=== PATIENT | female | born 1940 | race Caucasian/White ===

== ENCOUNTER 2016-11-15 16:15 | Emergency (ER) | payer MEDICARE ==
[2016-11-15] MEDS ORDERED: OXYBUTYNIN CHLOR5 M2 PO (16:49)
[2016-11-15] MEDS ORDERED: SINGULAIR10 M1 PO (16:49)
[2016-11-15] MEDS ORDERED: HYDROCODON-ACE1 EA16 PO (16:49)
[2016-11-15] MEDS ORDERED: NORVASC5 M2 PO (16:50)
[2016-11-15] MEDS ORDERED: REMERON15 M1 PO (16:50)
[2016-11-15] MEDS ORDERED: SERTRALINE HCL50 M4 PO (16:50)
[2016-11-15] MEDS ORDERED: NAMENDA5 M1 PO (16:50)
[2016-11-15] MEDS ORDERED: PROPRANOLOL HCL40 M2 PO (16:51)
[2016-11-15] MEDS ORDERED: ARICEPT10 M2 PO (16:51)
[2016-11-15] MEDS ORDERED: DIOVAN160 M1 PO (16:51)
[2016-11-15] MEDS ORDERED: ZYRTEC10 M7 PO (16:52)
[2016-11-15] MEDS ORDERED: GLUCOPHAGE500 M3 PO (16:52)
[2016-11-15] MEDS ORDERED: VITAMIN B-121000 MC1 PO (16:52)
[2016-11-15 17:10] LABS: BASO % 1.2 % (0-2); BASO ABSOLUTE COUNT 0.1 tho/cmm (0.0-0.2); EOS % 6.7 % (0-7); EOSINOPHIL ABSOLUTE COUNT 0.3 tho/cmm (0.0-0.7); HCT-HEMATOCRIT 29.9 % (34.0-49.0); HGB-HEMOGLOBIN 9.3 gm/dl (12.0-15.5); IMMATURE GRANULOCYTES ABSOLUTE 0.02 tho/cmm (0-0.03); IMMATURE GRANULOCYTES PERCENT 0.4 % (0-0.3); LYMPH % 28.7 % (20-45); LYMPH ABSOLUTE COUNT 1.4 tho/cmm (0.8-4.5); MCH (MEAN CORPUSCULAR HGB) 23.6 pg (28.0-32.0); MCHC MEAN CORPUSCULAR HGB CONC 31.1 % (32.0-36.0); MCV (MEAN CELL VOLUME) 75.9 fl (82.0-96.0); MEAN PLATELET VOLUME 11.7 cmc (9.4-12.4); MONO % 7.3 % (0-12); MONOCYTE ABSOLUTE COUNT 0.4 tho/cmm (0.0-1.2); NEUTROPHIL ABSOLUTE COUNT 2.7 tho/cmm (1.6-8.0); NEUTROPHIL-AUTOMATED 2.7 tho/cmm (1.6-8.0); NEUTROPHILS % 55.7 % (40-80); PLATELET COUNT 192 tho/cmm (150-450); RED BLOOD COUNT 3.94 mil/cmm (4.00-5.20); RED CELL DISTRIBUTION WIDTH 17.1 % (12.4-16.4); WHITE BLOOD COUNT 4.9 tho/cmm (4.0-10.0)
[2016-11-15 17:20] LABS: ALB/GLOB RATIO 0.8 (0.8-2.0); ALBUMIN 3.3 g/dl (3.5-5.0); ALKALINE PHOSPHATASE 65 U/L (33-138); ALT/SGPT 23 U/L (12-78); ANION GAP 13 mmol/L (0-20); AST/SGOT 28 U/L (10-40); BILIRUBIN,TOTAL 0.5 mg/dl (0-1.5); BLOOD UREA NITROGEN 19 mg/dl (6-24); CALCIUM 8.9 mg/dl (8.5-10.5); CARBON DIOXIDE-VENOUS 22 mmol/L (22-32); CHLORIDE 113 mmol/l (96-110); CREATININE 1.42 mg/dl (0.50-1.10); GLUCOSE 142 mg/dL (70-110); LIPASE 120 U/L (73-393); POTASSIUM 4.2 mmol/L (3.7-5.1); SODIUM 144 mmol/L (135-145); eGFR VALUE FOR BLACK 41 mL/Min
[2016-11-15 17:27] LABS: URINE BILIRUBIN NEGATIVE (NEG); URINE BLOOD NEGATIVE (NEG); URINE GLUCOSE (UA) NEGATIVE (NEG); URINE KETONE SMALL (NEG); URINE LEUKOCYTE ESTERASE POSITIVE (NEG); URINE NITRITE NEGATIVE (NEG); URINE PROTEIN SMALL (NEG)
[2016-11-15 17:28] LABS: URINE APPEARANCE CLEAR; URINE COLOR DARK YELLOW
[2016-11-15 17:39] LABS: URINE AMORPHOUS 1+; URINE RBC RARE /[HPF] (0-5); URINE WBC RARE /[HPF] (0-5)
== END 2016-11-15 18:11 ==
LOC: EDMED 16:15
PROVIDERS: Emergency Medicine
DX: K59.00 Constipation, unspecified (principal); E11.9 Type 2 diabetes mellitus without complications
CPT/HCPCS: J7030; P9612